=== PATIENT | male | born 1965 | race Caucasian/White ===

== ENCOUNTER → 2020-06-26 12:03 | Outpatient (CLI) | payer OTHER, SELFPAY ==
--- NOTE | ~2020-06-26 | XR_ITS ---
EXAMINATION: XR fl inj knee LT for MR/CT DATE: 06/26/2020 13:17 INDICATION: Medial left knee pain TECHNIQUE: A time-out was performed to verify the patient's name, date of , and procedure to b e performed. The procedure including the risks, benefits, and alternatives was discussed with the pat ient. Risks discussed included bleeding and infection. The patient understood the risks and agreed to proceed. The skin overlying the lateral side of the left knee joint was prepped and draped in usual sterile fashion. Anesthetic was administered with 1% lidocaine subcutaneously. A 21 G needle was a dvanced under fluoroscopic guidance into the joint. Injection of 0.5 mL of Omnipaque 240 confirmed i ntra-articular position of the needle. Subsequently, injectate consisting of 43 mL of 7:3:2 mixture of sterile saline:Omnipaque 240:1% lidocaine mixed 200:1 with 529 mg/mL Multihance gadolinium contras t was injected for a total dose injected dose. 12 mL Omnipaque 240. Intra-articular administration co nfirmed with intermittent fluoroscopy. The needle was removed and the entry site was cleaned and dres sed. There were no immediate complications. Fluoroscopy exposure time was 0.2 minutes. The total num fletcher of images was 10. FINDINGS: Real-time fluoroscopy demonstrates the needle in the left knee joint. IMPRESSION: 1. Successful left knee joint injection of a dilute gadolinium contrast mixture for subsequent MRI ar throgram which will be dictated separately. Reviewed, dictated and finalized at location B. IMPRESSION: 1. Successful left knee joint injection of a dilute gadolinium contrast mixture for subsequent MRI arthrogram which will be dictated separately.
--- NOTE | ~2020-06-26 | MR_ITS ---
EXAMINATION: MR knee LT w con DATE: 06/26/2020 13:51 INDICATION: Left knee pain TECHNIQUE: Magnetic resonance imaging (MRI) of the left knee was performed without intravenous contra st. Sequences included coronal PD-weighted FSE, coronal PD-weighted FS FSE, sagittal T2-weighted FSE , sagittal PD-weighted FS FSE and axial PD weighted fat saturated FSE. COMPARISON: None. FINDINGS: Medial compartment: Complex tear at the posterior horn of the medial meniscus which extends from the free edge to the per iphery and also involves both the superior and inferior articular surfaces. Articular cartilage is no rmal. Lateral compartment: Lateral meniscus is normal. Articular cartilage is normal. Patellofemoral compartment: Articular cartilage is normal. Ligaments and tendons: Anterior and posterior cruciate ligaments are normal. The medial collateral ligament and fibular dany ateral ligament complex are normal. The extensor mechanism is normal. The visualized medial and later al hamstring tendons as well as the iliotibial band are normal. Fluid: Couple tiny injected bubbles in the nondependent contrast opacified joint space. No loose osteochondr al bodies identified. There is both a partial suprapatellar plical band as well as a medial plical ba nd the latter which extends minimally across the superomedial margin of the medial trochlea. No Soliz 's cyst, bursitis or other abnormal fluid collections. Osseous/other: Normal marrow signal. No fracture or abnormal marrow replacing process. IMPRESSION: 1. Complex tear at the posterior horn of the medial meniscus. Normal bones, cartilage, tendons and st abilizing ligaments of the knee. 2. Medial plical band and partial suprapatellar plical band. Reviewed, dictated and finalized at location B. IMPRESSION: 1. Complex tear at the posterior horn of the medial meniscus. Normal bones, car tilage, tendons and stabilizing ligaments of the knee. 2. Medial plical band and partial suprapatellar plical band.
== END ==
PROVIDERS: Visit Provider Orthopaedic Surgery
DX: S83.232A Complex tear of medial meniscus, current injury, left knee, initial encounter (principal)
CPT/HCPCS: 20610; 73722; 77002; A9577; Q9966

== ENCOUNTER 2025-03-17 12:16 | Inpatient (IN) | payer OTHER, SELFPAY ==
[2025-03-17] VITALS (18 sets, daily range): BP systolic 95–208; BP diastolic 52–96; PULSE 54–80; RESP 10–22; TEMP 36.5–36.9; O2SAT 94–98; BMI 27.8
--- NOTE | ~2025-03-17 | XR_ITS ---
Examination: XR chest 2V Clinical History: cp Comparison: None Technique: PA and Lateral Findings: Cardiomediastinal silhouette normal size and configuration. Lungs clear. Calcified granuloma right midlung. No acute bony abnormality. IMPRESSION: 1. No acute cardiopulmonary findings. Reviewed, dictated and finalized at location R. ATION GENERAL MANAGER
--- NOTE | 2025-03-17 12:16 | ECG_ITS ---
Test Date: 2025-03-17 12:21:23 Measurements Intervals [place] Rate: 73 P: -6 [place]: 143 QRS: 76 QRSD: 87 T: 77 QT: 355 QTc: 392 Interpretive Statements SINUS RHYTHM LEFT ATRIAL ENLARGEMENT POSSIBLE RIGHT VENTRICULAR CONDUCTION DELAY VOLTAGE CRITERIA FOR LVH NONSPECIFIC T-WAVE ABNORMALITY- ANT/HIGH LAT LEADS BASELINE ARTIFACT- I, II, III, AVR, AVF BORDERLINE ECG No previous ECG available for comparison Electronically Signed On 03-17-2025 19:37:22 RAILROAD DISPATCHER by Jake Kolb D.O.
--- OUTSIDE RECORDS SUMMARY | 2025-03-17 12:18 | XMS_ITS | Clinical Summary ---
Author Organization [facility] Address [address] [place] [address] Care Team Providers Care Warehouse Engineer Name Role Phone Epifanio Gabriel DO Primary Care Provider [phone] Allergies No known active allergies Medications meclizine (ANTIVERT) 25 mg tabletIndicatio ns:Vertigo Take 1 tablet (25 mg total) by mouth 3 (three) times a day as needed for dizziness 30 tablet Active Active Problems Problem Noted Date Diagnosed Date Abnormal blood chemistry level 03/24/2012 Hyperlipidemia 03/15/2012 Cardiac arrhythmia 01/29/2012 Diastolic dysfunction 01/29/2012 Social History Tobacco Use Types Packs/Day Years Used Date Smoking Tobacco: Never Personal Safety Answer Date Recorded Have you ever been in or are you currently in a harmful physical or emotional relationship or is someone making you feel afraid or unsafe? Denies 04/11/2024 Sex and Gender Information Value Date Recorded Sex Assigned at Not on file Legal Sex Male 6:57 AM PHARMACY DELIVERY DRIVER Gender Identity Not on file Sexual Orientation Not on file Last Filed Vital Signs Vital Sign Reading Time Taken Comments Blood Pressure 147/98 04/11/2024 6:00 PM PHARMACY DELIVERY DRIVER Pulse 67 04/11/2024 6:00 PM PHARMACY DELIVERY DRIVER Temperature 36.4 C (97.6 F) 04/11/2024 11:47 AM PHARMACY DELIVERY DRIVER Respiratory Rate 19 04/11/2024 6:00 PM PHARMACY DELIVERY DRIVER Oxygen Saturation 95% 04/11/2024 6:00 PM PHARMACY DELIVERY DRIVER Inhaled Oxygen Concentration - - Weight 84.8 kg (187 lb) 04/11/2024 11:47 AM PHARMACY DELIVERY DRIVER Height 172.7 cm (5' 8) 04/11/2024 11:55 AM PHARMACY DELIVERY DRIVER Body Mass Index 28.43 04/11/2024 11:47 AM PHARMACY DELIVERY DRIVER Plan of Treatment Health Maintenance Due Date Last Done Comments Colon Cancer Screening-Colonoscopy 1966 Depression Screening 1966 Hepatitis C Screening 1966 Prostate Cancer Screening-PSA 1966 DTaP/Tdap/Td Vaccine (1 - Tdap) 1977 Hepatitis B Screening 1984 Regular Well Visit/Exam 18-64 1984 Zoster Vaccine (1 of 2) 2016 Covid-19 Vaccine (2024- season) 2024 03/24/2022, 02/20/2021, 07/09/2020, Additional history exists Influenza Vaccine (#1) 2024 02/27/2023, 2020 Pneumococcal vaccine <65 Aged Out No longer eligible based on patient's age to complete this topic Insurance [facility] Care Teams Warehouse Engineer Relationship Specialty Start Date End Date Epifanio Gabriel DO PCP - General Internal Medicine 04/11/24
--- OUTSIDE RECORDS SUMMARY | 2025-03-17 12:18 | XMS_ITS | Clinical Summary ---
Author Organization [facility] [employer] Address [address] [address] Care Team Providers Care Factory Superintendent Name Role Phone Unavailable Primary Care Provider Unavailabl e Source Comments [facility],non-owned Affiliates and Associated Physician Practices is amultiple site organization consisting of ambulatory clinics and hospital sitesin [place], [place], [place] and [place]. This disclosure is being madepursuant to the Care Everywhere program and may not contain all information available regarding this patient. Last updated 17.[facility] [employer] Allergies No known active allergies Medications * Be aware that medications may not be up to date on this document. Alwaysverify current medications with the patient. 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 Immunizations Immunization Administration Dates Next Due Covid Pfizer primary monoval ent 12+ yr 0.3mL Purple cap 07/09/2020,06/18/2020 Social History Tobacco Use Types Packs/Day Years Used Date Smoking Tobacco: Never Smokeless Tobacco: Never Alcohol Use Standard Drinks/Week Comments Yes 0 (1 standard drink = 0.6 oz pur e alcohol) occ Sex and Gender Information Value Date Recorded Sex Assigned at Not on file Legal Sex Male 12:40 PM CDT Gender Identity Not on file Sexual Orientation Not on file Last Filed Vital Signs Vital Sign Reading Time Taken Comments Blood Pressure 124/68 09/07/2020 6:17 PM CDT Pulse 70 09/07/2020 6:17 PM CDT Temperature 36.8 C (98.2 F) 09/07/2020 6:17 PM CDT Respiratory Rate 16 09/07/2020 6:17 PM CDT Oxygen Saturation 98% 09/07/2020 6:17 PM CDT Inhaled Oxygen Concentration - - Weight 73.9 kg (163 lb) 09/07/2020 3:48 PM CDT Height 172.7 cm (5' 8) 09/07/2020 3:48 PM CDT Body Mass Index 24.78 09/07/2020 3:48 PM CDT Plan of Treatment Health Maintenance Due Date Last Done Comments COLOGUARD (AGES 45-75) - COL ON CA SCREENING 1966 COLON MONITORING 1966 COLONOSCOPY - COLON CA SCREENING 1966 CT COLONOGRAPHY - COLON CA SCREENING 1966 Colorectal Cancer Screening 1966 FIT - COLON CA SCREENING 1966 FLEX SIG - COLON CA SCREENING 1966 LIPID TESTING 1966 HIV SCREENING 1981 HEPATITIS C SCREENING 11/26/1984 DTAP/TDAP/TD VACCINES (1 - Tdap) 1985 HEPATITIS B VACCINE (1 of 3 - 19+ 3-dose series) 1985 PNEUMOCOCCAL VACCINE 50+ (1 of 1 - PCV) 2016 ZOSTER VACCINE (1 of 2) 2016 DEPRESSION SCREENING 03/23/2024 COVID-19 VACCINE (3 - 2024-2 6 season) 2024 07/09/2020, 06/18/2020 INFLUENZA VACCINE (#1) 2024 HIB VACCINE Aged Out No longer eligi ble based on patient's age to complete this topic HPV VACCINE Aged Out No longer eligi ble based on patient's age to complete this topic MENINGOCOCCAL (Group B) VACCINE SHARED DECISION-MAKING Aged Out No longer eligible based on patient's age to complete this topic MENINGOCOCCAL GROUPS A/C/Y/W VACCINE Aged Out No longer eligible b ased on patient's age to complete this topic Insurance [facility] Advance Directives * Full Code (Latest Code Status on File) Date Activated Date Inactivated Comments 09/04/2020 1:46 PM 09/05/2020 4:05 PM
[2025-03-17 12:35] LABS: Hematocrit 54.9 % (42.0-52.0); Hemoglobin 19.3 g/dL (14.0-18.0); Immature Granulocyte Percent A 0.8 % (0-0.5); Lymphocytes Absolute Auto 1.20 K/mm3 (0.9-3.2); Mean Corpuscular HGB Conc 35.2 g/dl (32-36); Mean Corpuscular Hemoglobin 32.7 pg (26-34); Mean Corpuscular Volume 93.1 fl (80-100); Nucleated Red Blood Cells Absolute Auto 0.000 K/mm3 (0.0-0.012); Nucleated Red Blood Cells Perc 0.0 % (0.0-0.2); Platelet Count Result 376 k/mm3 (150-375); Red Blood Count 5.90 M/mm3 (4.6-6.20); White Blood Count 7.3 K/mm3 (4.5-10.0)
[2025-03-17 12:48] LABS: INR 1.1; Partial Thromboplastin Time 27.7 Seconds (22.3-36.8); Prothrombin Time 13.9 Seconds (11.1-14.7)
[2025-03-17 12:54] LABS: Alanine Aminotransferase 50 U/L (6-50); Albumin Level 4.8 g/dL (3.5-5.1); Alkaline Phosphatase 64 U/L (38-126); Anion Gap 9 mmol/L (4-12); Aspartate Amino Transferase 45 U/L (17-59); Bilirubin,Total 2.0 mg/dL (0.2-1.3); Blood Urea Nitrogen 25 mg/dL (9-20); Calcium 9.6 mg/dL (8.4-10.2); Carbon Dioxide 26 mmol/L (22-30); Chloride 104 mmol/L (98-107); Estimated CRCL calculation 56 ml/min; Estimated Glomerular Filt Rate 59; Glucose 109 mg/dL (65-110); Lipase 85 U/L (23-300); Potassium 3.9 mmol/L (3.4-5.0); Sodium 139 mmol/L (137-145); Total Protein 8.0 g/dL (6.3-8.2)
[2025-03-17 13:06] LABS: Troponin I 0.236 ng/mL (0.000-0.034)
[2025-03-17] MEDS: ASPIRIN 81 MG CHEWABLE TABLET 324 MG PO (13:44)
--- NOTE | 2025-03-17 13:45 | PC.NURSE ---
Nitro pill given per verbal order from Dr Maldonado while at bedside
--- OUTSIDE RECORDS SUMMARY | 2025-03-17 13:45 | XMS_ITS | Clinical Summary ---
Author Organization [facility] [employer] Address [address] [place] [address] Care Team Providers Care Retail Sales Clerk Name Role Phone Unavailable Primary Care Provider Unavailabl e Source Comments [facility],non-owned Affiliates and Associated Physician Practices is amultiple site organization consisting of ambulatory clinics and hospital sitesin [place], [place], [place] and [place]. This disclosure is being madepursuant to the Care Everywhere program and may not contain all information available regarding this patient. Last updated 17.[facility] [employer] Allergies No known active allergies Medications * [...] patient's age to complete this topic Insurance [facility] Advance Directives * Full Code (Latest Code Status on File) Date Activated Date Inactivated Comments 09/04/2020 1:46 PM 09/05/2020 4:05 PM
--- NOTE | 2025-03-17 13:56 | ED.CHESTPAIN ---
HPI - Chest Pain General Chief Complaint: Chest Pain Stated Complaint: left chest pain Time Seen by Provider: 03/17/25 13:38 History of Present Illness HPI narrative: Patient is a 59-year-old male who presents the ER with chest pain. He had worked out this morning doing shoulder exercises after he completed them he started having central chest pain. It is pressure-type discomfort that moves to left shoulder down the left arm. That occurred around 7:30 a.m.. Eight continue to increase in discomfort by 11:00 a.m.. He then decided he should probably come to the ER. He has history of a blood pressure spike early in the year but otherwise is in good health. He is not on any blood pressure medication or statins. He does take testosterone. He cannot describe any aggravating factors for his pain since it started. No alleviating factors. He is without any nausea or vomiting. No diaphoresis. On arrival blood pressure was in the 200 systolic but in wound patient's systolic blood pressures in the 160s. He continues to have 3/10 pain Related Data Home Medications ?Medication ?Instructions ?Recorded ?Confirmed ?Last Taken ?Type cholecalciferol (vitamin D3) 25 25 mcg PO DAILY 08/20/23 04/18/24 Unknown History mcg (1,000 unit) capsule mecobalamin (vitamin B12) 500 mcg mcg PO 08/20/23 04/18/24 Unknown History chewable tablet testosterone cypionate 100 mg/mL 100 mg IM ONCE 08/20/23 04/18/24 Unknown History intramuscular oil Allergies Allergy/AdvReac Type Severity Reaction Status Date / Time No Known Allergies Allergy Verified 03/17/25 12:19 [facility] Past Medical History Medical History Depression Family History Family History Father Hypertension Alcoholism Heart problem Mother Hypertension Depression Heart problem Social History Social History Smoking status: Never smoker Second hand tobacco smoke exposure: Yes Alcohol intake: current Drinks per week: 3 Substance use: never Lack of Transportation: No Lack of Food: Never True Current Housing: I Have Housing Concerned About Future Housing: No Difficulty Paying Gas/Electric Bills: No Difficulty Paying for Meds: No Currently Unemployed: No Education: Master's Degree or Higher Difficulty w/ Childcare or Family Care: No Course Course Emergency Course: 1410: Discussed the case with Dr. Atkinson with Cardiology. Recommends patient receive a beta-jas, atorvastatin, and heparin in addition to the aspirin he has already received. Patient declines the atorvastatin as he has had adverse reaction to statins in the past related to liver issues. Patient does understand that this is a mainstay of treatment for acute coronary syndrome. 1435: Accepted by hospitalist. Vital Signs Vital signs: Vital Signs Temperature 98.2 F 03/17/25 12:17 Pulse Rate 78 03/17/25 12:17 Respiratory Rate 16 03/17/25 12:17 Blood Pressure 208/93 H 03/17/25 12:17 Pulse Oximetry 98 03/17/25 12:17 Temperature 98.2 F 03/17/25 12:17 Pulse Rate 80 03/17/25 12:25 Respiratory Rate 16 03/17/25 12:17 Blood Pressure 208/93 H 03/17/25 12:17 Pulse Oximetry 98 03/17/25 12:17 MDM Differential Diagnosis Differential Diagnosis: Hypertension emergency, aortic dissection, non ST-elevation SC, musculoskeletal chest pain, STEMI Lab Data MDM Lab Attestation statement: I personally reviewed the patient's lab results. 03/17/25 12:29 03/17/25 12:29 Labs: Lab Results 03/17/25 Range/Units 12:29 WBC 7.3 (4.5-10.0) K/mm3 RBC 5.90 (4.6-6.20) M/mm3 Hgb 19.3 H (14.0-18.0) g/dL Hct 54.9 H (42.0-52.0) % MCV 93.1 (80-100) fl MCH 32.7 (26-34) pg MCHC 35.2 (32-36) g/dl RDW 13.2 (11.5-14.5) % Plt Count 376 H (150-375) k/mm3 MPV 9.7 (7.4-10.4) fl Immature Gran % (Auto) 0.8 H (0-0.5) % Neut % (Auto) 76.0 H (45.5-73.1) % Lymph % (Auto) 16.4 L (18.3-44.2) % [place] % (Auto) 4.6 (2.6-8.5) % Eos % (Auto) 1.4 (0-4.4) % Baso % (Auto) 0.8 (0.2-1.2) % Lymph # (Auto) 1.20 (0.9-3.2) K/mm3 [place] # (Auto) 0.3 (0.1-0.6) K/mm3 Eos # (Auto) 0.1 (0-0.3) K/mm3 Baso # (Auto) 0.1 (0.0-0.1) K/mm3 Abs Immat Gran (auto) 0.06 H (0.00-0.031) K/mm3 Absolute Neuts (auto) 5.6 (1.3-6.7) K/mm3 Absolute Nucleated RBC 0.000 (0.0-0.012) K/mm3 Nucleated RBC % 0.0 (0.0-0.2) % PT 13.9 (11.1-14.7) Seconds INR 1.1 APTT 27.7 (22.3-36.8) Seconds Sodium 139 (137-145) mmol/L Potassium 3.9 (3.4-5.0) mmol/L Chloride 104 (98-107) mmol/L Carbon Dioxide 26 (22-30) mmol/L Anion Gap 9 (4-12) mmol/L BUN 25 H (9-20) mg/dL Creatinine 1.25 (0.7-1.3) mg/dL Estim Creat Clear Calc 56 ml/min Estimated GFR 59 (59 - ) Glucose 109 (65-110) mg/dL Calcium 9.6 (8.4-10.2) mg/dL Total Bilirubin 2.0 H (0.2-1.3) mg/dL AST 45 (17-59) U/L ALT 50 (6-50) U/L Alkaline Phosphatase 64 (38-126) U/L Troponin I 0.236 H* (0.000-0.034) ng/mL Total Protein 8.0 (6.3-8.2) g/dL Albumin 4.8 (3.5-5.1) g/dL Cholesterol 205 H (0-200) mg/dL Lipase 85 (23-300) U/L Imaging Data Radiologist's impression: ITS Impressions Chest X-Ray 03/17/25 12:58 IMPRESSION: 1. No acute cardiopulmonary findings. ECG Data EKG #1: Attestation: I personally reviewed and interpreted this ECG as follows: ECG completion date: 03/17/25 ECG completion time: 12:21 normal rate (73), sinus rhythm, non-specific ST changes, normal QRS, NL axis and other (LVH. Biphasic T-wave before. Early repolarization abnormality V3.) Critical Care Time Critical Care Time Critical Care Time: Yes Time Type: Intermittent Initial evaluation, discuss w/ involved parties, attempting to gather old records: 10 minutes Documenting medical record: 5 minutes Review of results (EKG's, labs, imaging): 5 minutes Serial repeat bedside evaluation: 10 minutes Discussing case with multiple memebers of the care team and consultants: 5 minutes Total Critical Care Time: 35 Discharge Plan Discharge Clinical Impression: Non-ST elevation SC (NSTEMI) Patient Disposition: Still a Patient Condition: Stable Patient Language: Spanish Prescriptions: No Action testosterone cypionate 100 mg/mL oil 100 mg IM ONCE Rx Instructions: as a single dose mecobalamin (vitamin B12) 500 mcg tablet,chewable PO cholecalciferol (vitamin D3) 25 mcg (1,000 unit) capsule 25 mcg PO DAILY Follow-up/Referrals: Epifanio Gabriel, [Primary Care Provider, Internal Medicine]
[2025-03-17 14:30] LABS: Cholesterol 205 mg/dL (0-200)
[2025-03-17] MEDS: HEPARIN SOD/D5W 100 UNITS/ML 25,000 UNITS/250 ML BAG 9 UNITS IV CONT (14:30)
[2025-03-17] MEDS: METOPROLOL TARTRATE 12.5 MG TABLET PO ×2 (14:30→20:40)
[2025-03-17 14:47] LABS: HDL Direct 37 mg/dL; Triglycerides 164 mg/dL (<150)
[2025-03-17] MEDS: NITROGLYCERIN SL 0.4 MG TABLET SUBLINGUAL ×5 (14:54→21:10)
--- NOTE | 2025-03-17 15:31 | ECG_ITS ---
Test Date: 2025-03-17 15:45:48 Measurements Intervals [place] Rate: 64 P: 55 MT: 141 QRS: -6 QRSD: 85 T: -2 QT: 374 QTc: 389 Interpretive Statements SINUS RHYTHM WITH OCCASIONAL SUPRAVENTRICULAR PREMATURE COMPLEXES POSSIBLE LEFT ATRIAL ENLARGEMENT CONSIDER RIGHT VENTRICULAR CONDUCTION DELAY BORDERLINE T WAVE ABNORMALITY- INFERIOR LEADS BASELINE ARTIFACT- V4 BORDERLINE ECG Compared to ECG 03/17/2025 12:21:23 NO SIGNIFICANT CHANGE Electronically Signed On 03-17-2025 19:44:17 BIOMETRICS INSTRUCTOR by Jake Kolb D.O.
[2025-03-17 16:14] LABS: Troponin I 0.531 ng/mL (0.000-0.034)
--- NOTE | 2025-03-17 16:32 | WPCEDHO ---
ED Hand Off Checklist All vitals saved:yes IV Site documented:yes All med administrations documented:yes Triage Note Triage Note pt to ED c/o left sided chest 03/17/25 12:17 pain, started after completing a work out this AM at 0730. Pt has pain to left shoulder and left arm Allergies No Known Allergies Allergy (Verified 03/17/25 12:19) Family History (Last Reviewed 03/17/25 @ 14:40 by Krysta Villatoro APRN) Father Hypertension Alcoholism Heart problem Mother Hypertension Depression Heart problem Active Medications including assessments/comments Heparin Sodium/Dextrose (Heparin Sodium/D5w 100 Units/Ml) 25,000 units in 250 mls @ 9 mls/hr IV CONT .Q24H ADELFO; Protocol Last Admin: 03/17/25 14:30 Dose: 900 units/hr, 9 mls/hr Documented By: LEANNA Co-signed By: ERIN Infusion/Titration Document 03/17/25 14:30 [facility] (Rec: 03/17/25 14:31 [facility] [id number]) Co-signed By Olimpia Taylor RN Intake IV Site Peripheral Access Right Forearm Container Volume 250 Waste Amount 0 Dosing Dose Rate 900 Infusion Rate 9 Increase/Decrease Started Elapsed Time Elapsed Time ( 0m minutes) Heparin Infusion Assessment Document 03/17/25 14:30 [facility] (Rec: 03/17/25 14:31 [facility] [id number]) Co-signed By Olimpia Taylor RN Heparin Infusion Assessment Heparin Infusion Initiated Action Nitroglycerin (Nitroglycerin Sl 0.4 Mg Tablet) 0.4 mg SUBLINGUAL Q5MIN PRN PRN Reason: Chest Pain Last Admin: 03/17/25 14:54 Dose: 0.4 mg Documented By: LEANNA Administered/Completed Medications Discontinued Medications Aspirin (Aspirin 81 Mg Chewable Tablet) 324 mg PO ONCE STA Stop: 03/17/25 12:17 Last Admin: 03/17/25 13:44 Dose: 324 mg Documented By: LEANNA Atorvastatin Calcium (Atorvastatin 20 Mg Tablet) 20 mg PO ONCE STA Stop: 03/17/25 14:04 Last Admin: 03/17/25 16:09 Dose: Not Given Documented By: LEANNA Non-Admin Reason: Order Discontinued Heparin Sodium (Porcine) (Heparin Sodium 5,000 Units/Ml Vial) 4,000 units IV PUSH ONCE ONE Stop: 03/17/25 14:04 Last Admin: 03/17/25 14:30 Dose: 4,000 units Documented By: [facility] Co-signed By: ERIN Metoprolol Tartrate (Metoprolol Tartrate 12.5 Mg Tablet) 12.5 mg PO ONCE STA Stop: 03/17/25 14:04 Last Admin: 03/17/25 14:30 Dose: 12.5 mg Documented By: [facility] Notes 03/17/25 13:45 Nurse Note by Nazanin Marr Nitro pill given per verbal order from Dr Maldonado while at bedside Initialized on 03/17/25 13:45 - END OF NOTE Interventions/Assessments Cardiac Monitoring Start: 03/17/25 12:16 Freq: Status: Active Protocol: Document 03/17/25 12:25 KJT (Rec: 03/17/25 12:25 KJT [id number]) Veterinary Bacteriologist Assessment Veterinary Bacteriologist Yes Applied Pulse Rate (60-100) 80 EKG Rythm Sinus Rhythm IV / Saline Lock, Insert Start: 03/17/25 12:16 Freq: STAT Status: Active Protocol: Document 03/17/25 12:25 KJT (Rec: 03/17/25 12:26 KJT [id number]) IV Assessment Peripheral Access Right Forearm IV Catheter Access Initiated IV Insertion Date 03/17/25 IV Insertion Time 12:26 Catheter Gauge 18 PA: Cardiovascular Assessment Start: 03/17/25 12:16 Freq: Status: Active Protocol: Document 03/17/25 13:30 [facility] (Rec: 03/17/25 15:38 [facility] [id number]) Cardiovascular Assessment Cardiovascular Chest Pressure Symptoms Skin Description Normal Color Heart Sounds Normal Jugular Vein None Distention Chest Pain Assessment Chest Pain Intensity 4 Chest Pain Location Left Chest Description and Pressure Symptoms Precipitating None Factors Jugular Vein None Distention PA: Respiratory Assessment Start: 03/17/25 12:16 Freq: Status: Active Protocol: Document 03/17/25 13:30 [facility] (Rec: 03/17/25 15:38 [facility] [id number]) Respiratory Assessment Symptoms None Effort Normal Pattern Regular Depth Normal Chest Expansion Symmetrical Adult Capillary Normal/Less than 2 Seconds Refill Bilateral Throughout Phase Inspiratory & Expiratory Lung Sounds Clear Last Vital Signs Temperature 98.2 F 03/17/25 12:17 Pulse Rate 69 03/17/25 15:36 Respiratory Rate 14 03/17/25 15:36 Pulse Oximetry 96 03/17/25 15:36 Blood Pressure 134/84 03/17/25 15:36 Blood Pressure Mean 100 03/17/25 15:36 Weight 77 kg 03/17/25 12:17 Last Result - Abnormals Only Hgb 19.3 g/dL (14.0-18.0) H 03/17/25 12:29 Hct 54.9 % (42.0-52.0) H 03/17/25 12:29 Plt Count 376 k/mm3 (150-375) H 03/17/25 12:29 Immature Gran % (Auto) 0.8 % (0-0.5) H 03/17/25 12: Neut % (Auto) 76.0 % (45.5-73.1) H 03/17/25 12: Lymph % (Auto) 16.4 % (18.3-44.2) L 03/17/25 12:29 Abs Immat Gran (auto) 0.06 K/mm3 (0.00-0.031) H 03/17/25 12:29 BUN 25 mg/dL (9-20) H 03/17/25 12:29 Total Bilirubin 2.0 mg/dL (0.2-1.3) H 03/17/25 12:29 Troponin I 0.531 ng/mL (0.000-0.034) H* D 03/17/25 15:35 Triglycerides 164 mg/dL (<150) H 03/17/25 12:29 Cholesterol 205 mg/dL (0-200) H 03/17/25 12:29 Most Recent Suicide Severity Rating Suicide Severity Rating NO RISK INDICATED 03/17/25 12:17
--- NOTE | 2025-03-17 16:55 | ADMGEN ---
This patient, Serg Madison, was admitted to Virtual Bed IMU-2. Patient/family oriented to hospital policies and general routines including ID bracelet, bed and alarms, visiting hours, pain management, procedures, bathroom and other care routines, personal items, smoking policy, room service/diet, and visiting hours. Information on how to activate the Rapid Response Team has been discussed. Patient/Family are encouraged to report perceived risks to care and to ask questions if they do not understand what they are told or what they should do.
--- NOTE | 2025-03-17 16:55 | ADMGEN ---
This patient, Serg Madison, was admitted to Virtual Bed IMU-2 at 1655. Patient/family oriented to hospital policies and general routines including ID bracelet, bed and alarms, visiting hours, pain management, procedures, bathroom and other care routines, personal items, smoking policy, room service/diet, and visiting hours. Information on how to activate the Rapid Response Team has been discussed. Patient/Family are encouraged to report perceived risks to care and to ask questions if they do not understand what they are told or what they should do.
--- NOTE | 2025-03-17 17:30 | P.HP_ITS ---
H&P: HPI History of Present Illness Date/Time: 03/17/25 17:30 Chief Complaint: Chest Pain Narrative: 59 y/o M with PMH of transient elevated blood pressure without diagnosis of hypertension x1 and depression presents here with chest pain. The patient presents here from home on 03/17 for further evaluation of acute onset of chest pain. He reports he did a work out this morning around 7:30 a.m. states he did upper body work. Pain started shortly after his workout. He describes the chest pain as central, pressure, radiation into his left upper extremity and left shoulder, initially worsening in severity, constant, with no aggravating or alleviating factors. Initially he hoped the pain was related to his workout/musculoskeletal. He reports he took a nap prior to going to work but the pain persisted despite rest. He did report very mild indigestion and some mild fatigue. He denied accompanying nausea, vomiting, dizziness, shortness of breath, diaphoresis, palpitation, or weakness. He reports minimal past medical history. He does report he had a brief episode of high blood pressure earlier in the year that was accompanied by a dizziness, blurred vision, and headache. He was initially evaluated at [facility] and diagnosed with vertigo. He later followed up with his PCP and upon rechecks of his blood pressure they had normalized. Not on any antihypertensives or anticoagulation. He has previously been prescribed a statin, however he did not tolerate this as he developed significant muscle weakness and rhabdomyolysis. He reports significant family history of cardiac disease, however no early heart disease. Initial VS at presentation: 98.2? F, HR 78, R 16, 208/93, and 98% on RA. ED workup showed: No leukocytosis, hemoglobin 19.3, normal coags, no significant electrolyte derangements, creatinine 1.25 and GFR 59, total bilirubin 2.0 with normal AST/ALT/alk-phos, initial troponin 0.236, cholesterol 205. CXR showed no acute cardiopulmonary findings. Initial EKG showed sinus rhythm, rate 73, left atrial enlargement, possible RBC delay, possible LVH, nonspecific T-wave abnormality. Review of Systems Review of Systems: All systems reviewed & are unremarkable except as noted in HPI and below [facility] Past Medical History Medical History Family history of abdominal aortic aneurysm (AAA) Vitamin D deficiency Vertigo Depression Family History Family History Father Hypertension Alcoholism Heart problem Mother Hypertension Depression Heart problem Social History Social History Smoking status: Never smoker Second hand tobacco smoke exposure: Yes Alcohol intake: current Drinks per week: 3 Substance use: never Substance use type: does not use Lack of Transportation: No Lack of Food: Never True Current Housing: I Have Housing Concerned About Future Housing: No Difficulty Paying Gas/Electric Bills: No Difficulty Paying for Meds: No Currently Unemployed: No Education: Master's Degree or Higher Difficulty w/ Childcare or Family Care: No Spiritual care concerns: No Meds Home Medications and Allergies Home Medications ?Medication ?Instructions ?Recorded ?Confirmed ?Type cholecalciferol (vitamin D3) 25 25 mcg PO DAILY 03/17/25 History mcg (1,000 unit) capsule mecobalamin (vitamin B12) 500 mcg 1,000 mcg PO DAILY 0 08/20/23 03/17/25 History chewable tablet testosterone cypionate 100 mg/mL 100 mg IM ONCE 03/17/25 History intramuscular oil Allergies Allergy/AdvReac Type Severity Reaction Status Date / Time No Known Allergies Allergy Verified 03/17/25 17:05 Vital Signs Vital Signs - 24 hr 03/17/25 12:17 03/17/25 12:25 Temperature 98.2 F Pulse Rate 78 80 Respiratory Rate 16 Blood Pressure 208/93 H Pulse Oximetry 98 Exam Const: General: comfortable and no acute distress Other: , male, nontoxic appearance HENMT: Face/Nose/Sinus: Normal nares present Mouth: Yes moist mucous membranes Eyes: General: appearance normal, both eyes and all related structures Sclera: sclerae normal Pupils: Equal, round and reactive pupils present EOM: EOMs intact bilaterally Resp: Effort & Inspection: normal respiratory effort Auscultation: clear to auscultation bilaterally Cardio: Rate: regular rate Rhythm: regular rhythm Other: S1-S2 present without murmur, rub, ectopy GI: Other: Abdomen soft, nondistended, nontender. Normoactive bowel sounds in all quadrants. Skin: General skin exam: normal color and no rashes or lesions noted Wounds: no wounds Neuro: Other: A&O x4, moving all extremities. Normal speech, no facial droop, no dysarthria. Extrem: General: normal to inspection Psych: Mental Status: mental status grossly normal Affect: normal affect Other: Good insight and judgment, pleasant Results Labs Labs: Short CBC 03/17/25 Range/Units 12:29 WBC 7.3 (4.5-10.0) K/mm3 Hgb 19.3 H (14.0-18.0) g/dL Hct 54.9 H (42.0-52.0) % Plt Count 376 H (150-375) k/mm3 BMP 03/17/25 12:29 Sodium 139 Potassium 3.9 Chloride 104 Carbon Dioxide 26 BUN 25 H Creatinine 1.25 Glucose 109 Calcium 9.6 Cardiac Enzymes 03/17/25 Range/Units 12:29 Troponin I 0.236 H* (0.000-0.034) ng/mL Liver Function 03/17/25 Range/Units 12:29 Total Bilirubin 2.0 H (0.2-1.3) mg/dL AST 45 (17-59) U/L ALT 50 (6-50) U/L Alkaline Phosphatase 64 (38-126) U/L Albumin 4.8 (3.5-5.1) g/dL Critical Care Time Critical Care Time Critical Care Time: Yes Time Type: Continuous Initial evaluation, discuss w/ involved parties, attempting to gather old records: 30 minutes Documenting medical record: 15 minutes Review of results (EKG's, labs, imaging): 15 minutes Serial repeat bedside evaluation: 30 minutes Discussing case with multiple memebers of the care team and consultants: 20 minutes Total Critical Care Time: 110 Quality VTE Prophylaxis VTE prophylaxis: pharmacologic ordered Assessment and Plan Assessment and plan (1) Non-ST elevation MD (NSTEMI): Code(s): I21.4 - Non-ST elevation (NSTEMI) myocardial infarction Status: Acute Assessment and Plan: Patient presented here with acute onset of central, pressure like, radiating chest pain into his left upper extremity/left shoulder. Initially 10/30. Per PCP note from March 2024, he has previously been noted to have T-wave inversions that he has previously been evaluated by a outside sales consultant for. EKG today showed sinus rhythm, rate 73, left atrial enlargement, possible RBC delay, possible LVH, nonspecific T-wave abnormality. His initial troponin was elevated at 0.236. ED provider, Dr. Maldonado, spoke with on-call outside sales consultant, Dr. Atkinson, who recommended beta-jas, atorvastatin, and heparin in addition to the aspirin he has already received. Per ED provider, the patient declined atorvastatin stating he has previously had an adverse reaction when prescribed this medication related to liver issues. At time of evaluation the patient reported 2/10 chest pain. Reports that has been continuous, pressure, and more so noticeable/annoying than severe. He does report some slight relief with sublingual nitro, however he did develop a headache. Has since received 3 sublingual nitro with minimal relief. Chest pain now increasing. - heparin gtt initiated on 03/17 - start metoprolol 12.5 mg b.i.d., monitor toleration - patient declines statin, update lipid panel - NPO at midnight for cardiac catheterization if indicated - nitro SL prn - trend troponin and EKGs 3 hour EKG shows slight change in multiple leads. Patient showed mild new elevation in AVL, v4, v5. However per cardiology impression, there are no significant changes. 6 hour EKG reviewed and per my interpretation patient has worsening ST elevations in V4 and V3. - cardiology consulted After review of 6 hour troponin and 6 hour EKG, Dr. Atkinson was contacted. EKGs were faxed for review. Presentation/changes were related. Given constellation of symptoms, troponin, and EKGs the veterinary laboratory technician was activated. Interventional cardiology was contacted, Dr. Wheeler. Plan for emergent cardiac catheterization this evening. Patient has been notified and is agreeable to plan. Remains largely hemodynamically stable. BP slightly soft at 96/53 post sublingual nitro. Monitoring. (2) Elevated blood pressure reading: Code(s): R03.0 - Elevated blood-pressure reading, without diagnosis of hypertension Status: Acute Assessment and Plan: Patient has previously had elevated pressure earlier this year in March. Re- evaluated by his PCP office and BP normalized. Not currently on a daily antihypertensive. Arrived to the emergency department with a blood pressure of 208/93. Started on metoprolol 12.5 mg b.i.d. due to NSTEMI per cardiology recommendations. Monitor toleration. - metoprolol 12.5 mg b.i.d. started on 03/17 - hydralazine 10 mg p.r.n. for BP greater than 180/90 - monitor Plan Diet: heart healthy, NPO at midnight GI Prophylaxis: n/a DVT Prophylaxis: heparin gtt IV fluids: none Lines/Tubes: pIV Code Status: full code Prior Studies I have reviewed the following patient records and this information was taken into consideration when formulating the assessment and plan.: previous labs, previous ER visits, previous hospitalizations and previous clinic visits Time Spent with Patient Time with patient: less than 45 minutes Hospitalist MIPS Advance Care Plan I have confirmed that the patient's Advanced Care Plan is present, code status is documented, or surrogate decision maker is listed in patient medical record.: Yes Medication Reconciliation I have utilized all available resources to obtain, update and review the león ents current medications (includes all prescriptions, OTC, herbals, cannabis, and nutritional supplements).: Yes
[2025-03-17] MEDS: ACETAMINOPHEN 325 MG TABLET 650 MG PO (18:18)
[2025-03-17 18:38] LABS: Hematocrit 53.7 % (42.0-52.0); Hemoglobin 18.8 g/dL (14.0-18.0); Immature Granulocyte Percent A 0.4 % (0-0.5); Lymphocytes Absolute Auto 1.09 K/mm3 (0.9-3.2); Mean Corpuscular HGB Conc 35.0 g/dl (32-36); Mean Corpuscular Hemoglobin 33.2 pg (26-34); Mean Corpuscular Volume 94.7 fl (80-100); Nucleated Red Blood Cells Absolute Auto 0.000 K/mm3 (0.0-0.012); Nucleated Red Blood Cells Perc 0.0 % (0.0-0.2); Platelet Count Result 371 k/mm3 (150-375); Red Blood Count 5.67 M/mm3 (4.6-6.20); White Blood Count 7.1 K/mm3 (4.5-10.0)
[2025-03-17 18:50] LABS: INR 1.1; Prothrombin Time 13.8 Seconds (11.1-14.7)
[2025-03-17 18:51] LABS: Partial Thromboplastin Time 41.1 Seconds (22.3-36.8)
[2025-03-17 19:07] LABS: Troponin I 0.928 ng/mL (0.000-0.034)
--- NOTE | 2025-03-17 19:38 | ECG_ITS ---
Test Date: 2025-03-17 20:12:15 Measurements Intervals [place] Rate: 68 P: 61 ME: 144 QRS: -17 QRSD: 95 T: -25 QT: 383 QTc: 410 Interpretive Statements SINUS RHYTHM POSSIBLE LEFT ATRIAL ENLARGEMENT INCOMPLETE RIGHT BUNDLE BRANCH BLOCK VOLTAGE CRITERIA FOR LVH BORDERLINE T WAVE ABNORMALITY- ANTEROLAT/INF LEADS BASELINE ARTIFACT- V1, V4-V6 BORDERLINE ECG Compared to ECG 03/17/2025 15:45:48 NO SIGNIFICANT CHANGE Electronically Signed On 03-17-2025 20:33:14 CARDIOPULMONARY PHYSICAL THERAPIST by Jake Kolb D.O.
[2025-03-17] MEDS: MORPHINE SULFATE (*CRX) 4 MG/ML INJ IV PUSH (20:51)
--- NOTE | 2025-03-17 22:19 | PC.NURSE ---
Addendum entered by Faina Zapata RN 03/17/25 22:22: Pt transfer time was on 03/17/25 at 2153. Original Note: This patient, Serg Madison, was transferred to ICU-01 on 03/17/25 at 2157. Personal belongings sent with patient. Report given to LENKA Walker. Appropriate documentation sent with patient.
--- NOTE | 2025-03-17 22:20 | PC.NURSE ---
This patient, Serg Madison, was received from IMU on 03/17/25 at 2200. Report received from LENKA Hay. Patient/family oriented to unit policies and routines
--- NOTE | 2025-03-17 22:21 | PC.NURSE ---
This patient, Serg Madison, was transferred to ICU-01 on 03/17/25 at 2153. Personal belongings sent with patient. Report given to LENKA Walker. Appropriate documentation sent with patient.
--- NOTE | 2025-03-17 22:42 | PM.CNCAR ---
Assessment and Plan Assessment and plan (1) Essential hypertension: Code(s): I10 - Essential (primary) hypertension Status: Acute (2) Non-ST elevation AK (NSTEMI): Code(s): I21.4 - Non-ST elevation (NSTEMI) myocardial infarction Status: Acute Plan 1. NSTEMI 2. HTN 3. Depression - Received ASA 324, Atorvastatin 20 - ON metoprolol - On Heparin infusion - Urgent LHC as per Dr Atkinson - The riks, benefits and alternatives of LHC and PCI discussed with the patient. He understood the risks in layman terms and signed informed consent. The riks included but are not limited to bleeding, arrhythmia, vascular injury, anaphylaxis, perforation, coronary artery dissection, pericardial effusion, tamponade, arrhythmia, renal dysfunction, needing temporary or permanent hemodialysis and even History of Present Illness History of Present Illness Consult date/time: 03/17/25 22:42 Reason For Visit: NSTEMI Narrative: 59 y/o M with PMH of transient elevated blood pressure without diagnosis of hypertension x1 and depression was admitted with chest pain. presents here with chest pain. He reports he did a work out this morning around 7:30 a.m. states he did upper body work. Pain started shortly after his workout. He describes the chest pain as central, pressure, radiation into his left upper extremity and left shoulder, initially worsening in severity, constant, with no aggravating or alleviating factors. His pain has been waxing and waning with some subtle EKG changes. The team discussed the case with Dr Atkinson who activated the energy systems laboratory director Trop 0.2, 0.5, 0.9 No prior history of CAD, AK or CVA Non smoker Alcohol, yes Father had CAD at the age of 50 Review of Systems Review of Systems: All systems reviewed & are unremarkable except as noted in HPI and below PMF[facility] Past Medical History Medical History Family history of abdominal aortic aneurysm (AAA) Vitamin D deficiency Vertigo Depression Family History Family History Father Hypertension Alcoholism Heart problem Mother Hypertension Depression Heart problem Social History Social History Smoking status: Never smoker Second hand tobacco smoke exposure: Yes Alcohol intake: current Drinks per week: 3 Substance use: never Substance use type: does not use Lack of Transportation: No Lack of Food: Never True Current Housing: I Have Housing Concerned About Future Housing: No Difficulty Paying Gas/Electric Bills: No Difficulty Paying for Meds: No Currently Unemployed: No Education: Master's Degree or Higher Difficulty w/ Childcare or Family Care: No Spiritual care concerns: No Meds Home Medications and Allergies Home Medications ?Medication ?Instructions ?Recorded ?Confirmed ?Type cholecalciferol (vitamin D3) 25 25 mcg PO DAILY 08/20/23 03/17/25 History mcg (1,000 unit) capsule mecobalamin (vitamin B12) 500 mcg 1,000 mcg PO DAILY 08/20/23 03/17/25 History chewable tablet testosterone cypionate 100 mg/mL 100 mg IM ONCE 08/20/23 03/17/25 History intramuscular oil Allergies Allergy/AdvReac Type Severity Reaction Status Date / Time No Known Allergies Allergy Verified 03/17/25 17:05 Vital Signs Vital Signs - 24 hr 03/17/25 12:17 03/17/25 12:25 03/17/25 14:30 Temperature 36.8 C Pulse Rate 78 80 65 Respiratory Rate 16 Blood Pressure 208/93 H Pulse Oximetry 98 03/17/25 15:36 03/17/25 16:55 03/17/25 18:00 Temperature 36.8 C Pulse Rate 69 57 L 62 Respiratory Rate 14 16 Blood Pressure 134/84 135/96 H Pulse Oximetry 96 96 03/17/25 19:51 03/17/25 20:40 03/17/25 20:56 Temperature 36.5 C Pulse Rate 70 58 L 57 L Respiratory Rate 14 22 H Blood Pressure 139/91 H 95/52 L Pulse Oximetry 94 96 03/17/25 20:59 Temperature Pulse Rate 54 L Respiratory Rate 20 Blood Pressure 96/53 L Pulse Oximetry 95 Exam Const: General: comfortable and no acute distress Other: , male, nontoxic appearance HENMT: Face/Nose/Sinus: Normal nares present Mouth: Yes moist mucous membranes Eyes: General: appearance normal, both eyes and all related structures Sclera: sclerae normal Pupils: Equal, round and reactive pupils present EOM: EOMs intact bilaterally Resp: Effort & Inspection: normal respiratory effort Auscultation: clear to auscultation bilaterally Cardio: Rate: regular rate Rhythm: regular rhythm Other: S1-S2 present without murmur, rub, ectopy GI: Other: Abdomen soft, nondistended, nontender. Normoactive bowel sounds in all quadrants. Skin: General skin exam: normal color and no rashes or lesions noted Wounds: no wounds Neuro: Cranial nerves: Yes Equal, round and reactive pupils present Other: A&O x4, moving all extremities. Normal speech, no facial droop, no dysarthria. Extrem: General: normal to inspection Psych: Mental Status: mental status grossly normal Affect: normal affect Other: Good insight and judgment, pleasant Results Labs and Meds 03/17/25 18:24 03/17/25 12: Lab results: Cardiac Enzymes 03/17/25 03/17/25 03/17/25 Range/Units 12: 15:35 18:24 AST 45 (17-59) U/L Troponin I 0.236 H* 0.531 H* D 0.928 H* D (0.000-0.034) ng/mL Coagulation 03/17/25 03/17/25 Range/Units 12: 18:24 PT 13.9 13.8 (11.1-14.7) Seconds APTT 27.7 41.1 H (22.3-36.8) Seconds Lipids 03/17/25 Range/Units 12: Triglycerides 164 H (<150) mg/dL Cholesterol 205 H (0-200) mg/dL CBC 03/17/25 03/17/25 Range/Units 12:29 18:24 WBC 7.3 7.1 (4.5-10.0) K/mm3 RBC 5.90 5.67 (4.6-6.20) M/mm3 Hgb 19.3 H 18.8 H (14.0-18.0) g/dL Hct 54.9 H 53.7 H (42.0-52.0) % Plt Count 376 H 371 (150-375) k/mm3 Lymph # (Auto) 1.20 1.09 (0.9-3.2) K/mm3 [place] # (Auto) 0.3 0.3 (0.1-0.6) K/mm3 Eos # (Auto) 0.1 0.2 (0-0.3) K/mm3 Baso # (Auto) 0.1 0.1 (0.0-0.1) K/mm3 Comprehensive Metabolic Panel 03/17/25 Range/Units 12:29 Sodium 139 (137-145) mmol/L Potassium 3.9 (3.4-5.0) mmol/L Chloride 104 (98-107) mmol/L Carbon Dioxide 26 (22-30) mmol/L BUN 25 H (9-20) mg/dL Creatinine 1.25 (0.7-1.3) mg/dL Glucose 109 (65-110) mg/dL Calcium 9.6 (8.4-10.2) mg/dL AST 45 (17-59) U/L ALT 50 (6-50) U/L Alkaline Phosphatase 64 (38-126) U/L Total Protein 8.0 (6.3-8.2) g/dL Albumin 4.8 (3.5-5.1) g/dL Intake and Output 03/17/25 03/17/25 03/17/25 07:59 15:59 23:59 Intake Total 886.2 Balance 886.2 Intake: IV 46.2 Heparin Sod/D5w 100 Units/ml 25 46.2 ,000 units In 250 ml @ 900 UNITS/HR 9 mls/hr IV CONT .Q24H [facility] Rx#:[id number] Oral 840 Other: # Unmeasured Voids 1 Patient Weight 03/17/25 23:59 Weight 83.1 kg
--- NOTE | 2025-03-17 23:26 | P.PCNCC_ITS ---
Cardiac Cath Procedure Note Date of procedure:: 03/17/25 Performing physician:: Xu Wheeler MD Indication:: NSTEMI Brief clinical history:: As noted in cardiology consult note Procedure Procedure performed:: 1. Coronary Angiography 2. Left Heart Catheterization Sedation/Medication given:: Versed 1 mg Fentanyl 25 mcg Access site:: Right Radila Estimated blood loss:: 2 cc Procedure note:: The patient was brought to the laboratory manager and informed consent was signed after discussion of the risks and benefits. The right radial artery was accessed using seldinger technique and a 5-6 Fr sheath was inserted. A 5Fr Tig catheter was used to the engage the right and left coronary ostia. Multiple aniographic images were taken in different cineangiographic projections. The aortic valve was crossed and LVEDP was measure. The catheter was pulled back for a LV-Ao gradient. The radial sheath was removed at the end of the procedure and hemostasis was achieved with TR band Moderate sedation was given under my direct supervision and the patient was monitored by an independent trained personnel Sedation Start Time: 2307 H Sedation Edn time: 2321 H Findings:: 1. Coronary Angiography: LM: Large caliber vessel which divides into LAD, Ramus and LCX branches. No angiographic evidence of atherosclerotic ds. LAD: Large caliber, transapical vessel which gives rise to a mod-large caliber diagonal branch. No angiographic evidence of atherosclerotic ds. LCX; LArge caliber, non dominant vessel, gives rise to mod caliber OM1. No angiographic evidence of atherosclerotic ds. Ramus: LArge caliber vessel. No angiographic evidence of atherosclerotic ds. RCA: LArge caliber vessel whihc divides into PDA and PLV brnaches. No angiographic evidence of atherosclerotic ds. 2. Left Heart Catheterization LVEDP 6 mmhg No significant LV-Ao gradient on pullback Conclusion:: 1. Normal Coronaries 2. Normal LVEDP
--- NOTE | 2025-03-17 23:53 | ECG_ITS ---
Test Date: 2025-03-18 00:00:33 Measurements Intervals [place] Rate: 54 P: 63 [place]: 135 QRS: -4 QRSD: 102 T: -29 QT: 423 QTc: 402 Interpretive Statements SINUS BRADYCARDIA EARLY PRECORDIAL R/S TRANSITION VOLTAGE CRITERIA FOR LVH BORDERLINE ST-T WAVE ABNORMALITY- ANTEROLAT/INF LEADS BASELINE ARTIFACT- I, III, AVL BORDERLINE ECG Compared to ECG 03/17/2025 20:12:15 HEART RATE HAS DECREASED Electronically Signed On 03-18-2025 09:00:32 TITLE ATTORNEY by Jake Kolb D.O.
[2025-03-18] VITALS (23 sets, daily range): BP systolic 108–174; BP diastolic 71–96; PULSE 52–134; RESP 11–23; TEMP 36.6; O2SAT 92–100
--- NOTE | 2025-03-18 | ECHO_ITS ---
Patient Info Name: Serg Madison Age: 59 years : 1965 Gender: Male Ht: 68 in Wt: 183 lbs BSA: 2.01 m2 HR: 59 bpm BP: 156 / 91 mmHg Heart Rhythm: Sinus Rhythm Technical Quality: Good Exam Date: 03/18/2025 10:34 AM Patient Status: I Admit Date: 03/17/2025 Exam Type: CA echo dop color flow w con Complete two-dimensional, color flow and Doppler transthoracic echocardiogram is performed with contrast to opacify the left ventricle and to improve the deliniation of the left ventricle endocardial borders. Staff Referring Physician: Zohaib Maldonado MD Candy Attendant: Leatha Fulton Attending Provider: Jesus Spicer Contrast/Agitated Saline Contrast/Ag. Saline: Definity Amount: 2.00 ml Administered By: Leatha Fulton Existing IV Access: Yes IV Access Condition: patent with no signs of infiltration Summary 1. Normal left ventricular size with overall normal systolic and diastolic function. 2. Very small discrete area of distal anterior hypokinesia. 3. No valvular abnormalities. 4. Sinus rhythm. Left Ventricle Left ventricular systolic function is normal, estimated at 60-65. The left ventricular diastolic function is normal. Right Ventricle Right ventricular chamber dimension is normal. Left Atria Left atrial chamber dimension is normal. Right Atria Right atrial chamber dimension is normal. Aortic Valve The aortic valve is normal. Pulmonic Valve The pulmonic valve is normal. Mitral Valve The mitral valve has normal leaflets. Tricuspid Valve The tricuspid valve leaflets are normal. Pericardium/Pleural The pericardium appears normal. Aorta The aortic root size at the sinus of Valsalva is normal. Left Ventricular Outflow Tract Name Value Normal LVOT 2D LVOT Diameter 2.0 cm LVOT Doppler LVOT Peak Velocity 106 cm/s LVOT Peak Gradient 5 mmHg LVOT Mean Gradient 2 mmHg LVOT VTI 19 cm LVOT VTI/AV VTI Ratio 0.8 LVOT Stroke Volume 57 ml LVOT CO 3.8 l/min LVOT CI 1.9 l/min/m2 Pulmonic Valve Name Value Normal RVOT Doppler RVOT Peak Velocity 64 cm/s RVOT Peak Gradient 2 mmHg PV Doppler PV Peak Velocity 99 cm/s PV Peak Gradient 4 mmHg Mitral Valve Name Value Normal MV Diastolic Function MV E Peak Velocity 43 cm/s MV A Peak Velocity 45 cm/s MV E/A 0.9 MV Decel Time (PW) 273 ms MV Annular TDI MV E/e' (Septal) 5.9 MV E/e' (Lateral) 4.4 MV E/e' (Average) 5.1 Tricuspid Valve Name Value Normal TV Regurgitation Doppler TR Peak Velocity 225 cm/s TR Peak Gradient 20 mmHg Estimated PAP/RSVP RA Pressure 10 mmHg <=5 PA Systolic Pressure 30 mmHg <36 RV Systolic Pressure 30 mmHg <36 TV Annular TDI TV Lateral Janet s' Velocity 12.6 cm/s >=9.5 Aortic Valve Name Value Normal AV Doppler AV Peak Velocity 129 cm/s AV Peak Gradient 7 mmHg AV Mean Gradient 3 mmHg AV VTI 24 cm AV Area (Cont Eq VTI) 2.4 cm2 >=3.0 AV Area (Cont Eq Alvaro) 2.5 cm2 AV DI (Alvaro) 0.82 AV Regurgitation 2D LVOT Area 3.0 cm2 Ventricles Name Value Normal LV Dimensions 2D/MM IVS Diastolic Thickness (2D) 1.0 cm 0.6-1.0 LVID Diastole (2D) 5.6 cm 4.2-5.8 LVIW Diastolic Thickness (2D) 1.0 cm 0.6-1.0 LVID Systole (2D) 3.1 cm 2.5-4.0 LVOT Diameter 2.0 cm LV Mass (2D Cubed) 206.08 g 88.00-224.00 LV Mass Index (2D Cubed) 102 g/m2 49-115 Relative Wall Thickness (2D) 0.34 <=0.42 LV Fractional Shortening/Ejection Fraction 2D/MM LV Fractional Shortening (2D) 45 % 25-43 LV EF (2D Teichholz) 76 % LV Diastolic Volume (4C MOD) 149 ml LV EF (4C MOD) 68 % LV Diastolic Volume (2C MOD) 136 ml LV EF (2C MOD) 71 % LV Diastolic Volume (BP MOD) 144 ml 62-150 LV Diastolic Volume Index (BP MOD) 72 ml/m2 34-74 LV Systolic Volume (BP MOD) 43 ml 21-61 LV Systolic Volume Index (BP MOD) 22 ml/m2 11-31 LV EF (BP MOD) 70 % 52-72 LV Diastolic Length (4C) 8.8 cm LV Systolic Length (4C) 7.7 cm LV Stroke Volume (4C MOD) 102 ml Atria Name Value Normal LA Dimensions LA Volume (4C A-L) 91 ml LA Volume (BP A-L) 98 ml RA Dimensions RA Area (4C) 25.9 cm2 <=18.0 Report Signatures
[2025-03-18] MEDS: SODIUM CHLORIDE 0.9% IV 1,000 ML 125 ML IV CONT (00:05)
[2025-03-18] MEDS: CLOPIDOGREL BISULFATE 300 MG TABLET 600 MG PO (00:17)
[2025-03-18 02:06] LABS: Partial Thromboplastin Time 83.7 Seconds (22.3-36.8)
[2025-03-18 04:48] LABS: Hematocrit 51.2 % (42.0-52.0); Hemoglobin 17.5 g/dL (14.0-18.0); Immature Granulocyte Percent A 0.5 % (0-0.5); Lymphocytes Absolute Auto 1.03 K/mm3 (0.9-3.2); Mean Corpuscular HGB Conc 34.2 g/dl (32-36); Mean Corpuscular Hemoglobin 32.3 pg (26-34); Mean Corpuscular Volume 94.5 fl (80-100); Nucleated Red Blood Cells Absolute Auto 0.000 K/mm3 (0.0-0.012); Nucleated Red Blood Cells Perc 0.0 % (0.0-0.2); Platelet Count Result 320 k/mm3 (150-375); Red Blood Count 5.42 M/mm3 (4.6-6.20); White Blood Count 7.3 K/mm3 (4.5-10.0)
[2025-03-18 05:20] LABS: Anion Gap 4 mmol/L (4-12); Blood Urea Nitrogen 22 mg/dL (9-20); Calcium 8.4 mg/dL (8.4-10.2); Carbon Dioxide 23 mmol/L (22-30); Chloride 108 mmol/L (98-107); Estimated CRCL calculation 68 ml/min; Estimated Glomerular Filt Rate > 60; Glucose 104 mg/dL (65-110); Potassium 3.8 mmol/L (3.4-5.0); Sodium 135 mmol/L (137-145)
--- NOTE | 2025-03-18 09:13 | PM.PNCARD ---
Progress Note: A&P Assessment and Plan (1) Non-ST elevation ND (NSTEMI): Code(s): I21.4 - Non-ST elevation (NSTEMI) myocardial infarction Status: Acute Plan A 59-year-old man with episode of chest pain as described above the yesterday following upper body exertional exercise. 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 Left ventriculogram was not performed. Due to the subtle precordial ST segment changes the unlikely possibility of takotsubo cardiomyopathy should be evaluated. I will order an echocardiogram for this morning for that reason. Following the review of that we will determine if he requires any beta jas/ARB combination for that. Anticipate discharging him later this afternoon/this evening when I have had the opportunity to review his echocardiographic results with him. Brain Atkinson MD [facility] Subjective Date/time seen: Date of service: 03/18/25 09:13 Interval history: Follow-up visit in this 59-year-old man with: Episode of vague central chest discomfort yesterday following exertion which did result in some radiation into the left arm home which brought him to the emergency room. Concern last night regarding acute coronary syndrome because of small troponin rise and subtle ECG abnormalities lead to emergent left heart catheterization which demonstrated non diseased coronary arteries. Left ventriculogram was not performed. He is feeling much better today he a still has very subtle central chest discomfort but otherwise is comfortable. Exam Const: General: comfortable and no acute distress Other: Very pleasant gentleman appearing his stated age comfortable and cooperative HENMT: Mouth: Yes moist mucous membranes Eyes: Sclera: sclerae normal Neck: Neck: no JVD Resp: Effort & Inspection: normal respiratory effort Auscultation: clear to auscultation bilaterally Cardio: Rate: regular rate Rhythm: regular rhythm Other: No murmur no gallop no rub GI: GI Palp: Yes Soft to palpation Auscultation: normal bowel sounds Skin: General skin exam: normal color Neuro: Other: Alert and oriented x3 Extrem: General: normal to inspection Objective Data Vital Signs Vital Signs: Vital Signs - 24 hr 03/17/25 12:17 03/17/25 12:25 03/17/25 14:30 Temperature 36.8 C Pulse Rate 78 80 65 Respiratory Rate 16 Blood Pressure 208/93 H Pulse Oximetry 98 Oxygen Delivery 03/17/25 15:36 03/17/25 16:55 03/17/25 18:00 Temperature 36.8 C Pulse Rate 69 57 L 62 Respiratory Rate 14 16 Blood Pressure 134/84 135/96 H Pulse Oximetry 96 96 Oxygen Delivery 03/17/25 19:51 03/17/25 20:00 03/17/25 20:35 Temperature 36.5 C Pulse Rate 70 64 70 Respiratory Rate 14 14 Blood Pressure 139/91 H Pulse Oximetry 94 94 Oxygen Delivery Room Air 03/17/25 20:40 03/17/25 20:56 03/17/25 20:59 Temperature Pulse Rate 58 L 57 L 54 L Respiratory Rate 22 H 20 Blood Pressure 95/52 L 96/53 L Pulse Oximetry 96 95 Oxygen Delivery 03/17/25 22:00 03/17/25 22:00 03/17/25 22:03 Temperature 36.9 C Pulse Rate 61 60 59 L Respiratory Rate 16 10 L Blood Pressure 118/89 Pulse Oximetry 96 Oxygen Delivery 03/17/25 22:16 03/17/25 22:31 03/17/25 23:40 Temperature Pulse Rate 59 L 56 L 59 L Respiratory Rate 20 14 14 Blood Pressure 121/82 124/83 119/81 Pulse Oximetry 96 95 96 Oxygen Delivery 03/17/25 23:47 03/18/25 00:00 03/18/25 00:00 Temperature Pulse Rate 58 L 54 L Respiratory Rate 12 Blood Pressure 119/80 Pulse Oximetry 96 Oxygen Delivery Room Air 03/18/25 00:10 03/18/25 00:25 03/18/25 00:55 Temperature Pulse Rate 55 L 54 L 53 L Respiratory Rate 23 H 12 13 Blood Pressure 130/82 125/75 137/80 Pulse Oximetry 92 95 93 Oxygen Delivery 03/18/25 01:13 03/18/25 01:25 03/18/25 02:00 Temperature Pulse Rate 53 L 52 L 52 L Respiratory Rate 13 13 Blood Pressure 140/71 115/75 Pulse Oximetry 94 93 Oxygen Delivery 03/18/25 02:25 03/18/25 02:58 03/18/25 04:00 Temperature Pulse Rate 53 L 69 52 L Respiratory Rate 11 L 12 Blood Pressure 137/96 H 141/76 H Pulse Oximetry 96 97 Oxygen Delivery 03/18/25 04:00 03/18/25 05:25 03/18/25 06:00 Temperature Pulse Rate 68 55 L Respiratory Rate 19 Blood Pressure 128/78 Pulse Oximetry 93 Oxygen Delivery Room Air 03/18/25 06:00 03/18/25 07:00 03/18/25 08:00 Temperature Pulse Rate 56 L 54 L 59 L Respiratory Rate 14 17 13 Blood Pressure 108/96 H 125/79 156/91 H Pulse Oximetry 96 93 95 Oxygen Delivery Intake/Output Intake/Output: Intake & Output 03/15/25 03/16/25 03/17/25 03/18/25 23:59 23:59 23:59 23:59 Intake Total 922.6 0 Output Total 500 Balance 922.6 -500 Meds/Results Medications: Active Medications Generic Name Dose Route Start Last Admin Trade Name Freq PRN Reason Stop Dose Admin Acetaminophen 650 mg 03/17/25 14:34 03/17/25 18:18 Acetaminophen 325 Mg Tablet PO 650 mg Q4H PRN Administration Mild Pain (1-3) or Fever Hydrocodone Bitart/Acetaminophen 1 tab 03/17/25 14:34 Hydrocodone/Acetaminophen (*Crx) 5-325 Mg Tablet PO Q4H PRN Pain Rated 4-6 Aspirin 81 mg 03/18/25 09:00 Aspirin 81 Mg Enteric Tablet PO QAM A[place] Calcium Carbonate 200 mg 03/17/25 14:50 Calcium Carbonate (Tums) 500 Mg (200 Mg Elemental) PO Q6H PRN Indigestion Clopidogrel Bisulfate 75 mg 03/18/25 09:00 Clopidogrel Bisulfate 75 Mg Tablet PO QAM [facility] Heparin Sodium (Porcine) 4,000 units 03/17/25 14:03 03/17/25 19:39 Heparin Sodium 5,000 Units/Ml Vial IV PUSH 4,000 units PRN PRN Administration aPTT less than 55 seconds Heparin Sodium (Porcine) 3,000 units 03/17/25 14:03 Heparin Sodium 5,000 Units/Ml Vial IV PUSH PRN PRN aPTT 55 - 70 seconds Hydralazine HCl 10 mg 03/17/25 14:48 Hydralazine Hcl 20 Mg/Ml Vial IV PUSH Q8H PRN Blood Pressure - High, >180/90 Heparin Sodium/Dextrose 25,000 units in 250 mls @ 12 mls/hr 03/17/25 14:05 03/18/25 07:10 Heparin Sodium/D5w 100 Units/Ml IV CONT 1,200 units/hr .[id number] A[place] 12 mls/hr Protocol Titration 1,200 UNITS/HR Metoprolol Tartrate 12.5 mg 03/17/25 21:00 03/17/25 20:40 Metoprolol Tartrate 12.5 Mg Tablet PO 12.5 mg Q12HR [place] Administration Morphine Sulfate 4 mg 03/17/25 14:34 03/17/25 20:51 Morphine Sulfate (*Crx) 4 Mg/Ml Inj IV PUSH 4 mg Q2H PRN Administration Pain Rated 7-10 Nitroglycerin 0.4 mg 03/17/25 14:33 03/17/25 21:10 Nitroglycerin Sl 0.4 Mg Tablet SUBLINGUAL 0.4 mg Q5MIN PRN Administration Chest Pain Ondansetron HCl 4 mg 03/17/25 14:34 Ondansetron Inj 4 Mg/2 Ml Vial IV PUSH Q4H PRN Nausea Perflutren Lipid Microsphere 0 ml 03/18/25 08:17 Perflutren Lipid Microspheres 1.5 Ml Vial Diluted To 10 Ml Total Volume IV PUSH 03/21/25 08:17 ONCE PRN adequate visualization Protocol Radiology Results: ITS Impressions Chest X-Ray 03/17/25 12:58 IMPRESSION: 1. No acute cardiopulmonary findings. Labs Labs: Laboratory Results - last 24 hr 03/17/25 03/17/25 03/17/25 12:29 15:35 18:24 WBC 7.3 7.1 RBC 5.90 5.67 Hgb 19.3 H 18.8 H Hct 54.9 H 53.7 H MCV 93.1 94.7 MCH 32.7 33.2 MCHC 35.2 35.0 RDW 13.2 13.3 Plt Count 376 H 371 MPV 9.7 9.6 Immature Gran % (Auto) 0.8 H 0.4 Neut % (Auto) 76.0 H 76.0 H Lymph % (Auto) 16.4 L 15.4 L [place] % (Auto) 4.6 4.7 Eos % (Auto) 1.4 2.5 Baso % (Auto) 0.8 1.0 Lymph # (Auto) 1.20 1.09 [place] # (Auto) 0.3 0.3 Eos # (Auto) 0.1 0.2 Baso # (Auto) 0.1 0.1 Abs Immat Gran (auto) 0.06 H 0.03 Absolute Neuts (auto) 5.6 5.4 Absolute Nucleated RBC 0.000 0.000 Nucleated RBC % 0.0 0.0 PT 13.9 13.8 INR 1.1 1.1 APTT 27.7 41.1 H Sodium 139 Potassium 3.9 Chloride 104 Carbon Dioxide 26 Anion Gap 9 BUN 25 H Creatinine 1.25 Estim Creat Clear Calc 56 Estimated GFR 59 Glucose 109 Calcium 9.6 Total Bilirubin 2.0 H AST 45 ALT 50 Alkaline Phosphatase 64 Troponin I 0.236 H* 0.531 H* D 0.928 H* D Total Protein 8.0 Albumin 4.8 Triglycerides 164 H Cholesterol 205 H LDL Cholesterol Direct 131 HDL Direct 37 Lipase 85 03/18/25 03/18/25 01:49 04:41 WBC 7.3 RBC 5.42 Hgb 17.5 Hct 51.2 MCV 94.5 MCH 32.3 MCHC 34.2 RDW 13.3 Plt Count 320 MPV 9.5 Immature Gran % (Auto) 0.5 Neut % (Auto) 77.1 H Lymph % (Auto) 14.1 L [place] % (Auto) 6.0 Eos % (Auto) 1.6 Baso % (Auto) 0.7 Lymph # (Auto) 1.03 [place] # (Auto) 0.4 Eos # (Auto) 0.1 Baso # (Auto) 0.1 Abs Immat Gran (auto) 0.04 H Absolute Neuts (auto) 5.6 Absolute Nucleated RBC 0.000 Nucleated RBC % 0.0 PT INR APTT 83.7 H Sodium 135 L Potassium 3.8 Chloride 108 H Carbon Dioxide 23 Anion Gap 4 BUN 22 H Creatinine 1.01 Estim Creat Clear Calc 68 Estimated GFR > 60 Glucose 104 Calcium 8.4 Total Bilirubin AST ALT Alkaline Phosphatase Troponin I Total Protein Albumin Triglycerides Cholesterol LDL Cholesterol Direct HDL Direct Lipase
--- NOTE | 2025-03-18 09:36 | WPDCNINT2 ---
Assessment and Plan Assessment and plan (1) Essential hypertension: Code(s): I10 - Essential (primary) hypertension Status: Acute (2) Chest pain: Code(s): R07.9 - Chest pain, unspecified Status: Acute Plan 1. Neurologically patient is awake and interactive. 2. Cardiovascular chest pain of unknown origin with minimal troponin elevation. Echocardiogram has been ordered and Cardiology is following. Discontinue heparin drip, continue aspirin. Cardiology to decide if further medications are needed after echocardiogram has been reviewed. He might need medications for blood pressure control. 3. Respiratory: No symptoms. No tobacco use 4. GI: Resume diet. LFTs were not elevated. 5. renal: BUN mildly elevated with normal creatinine. Electrolytes are normal. 6. Endocrine: No history of diabetes or thyroid disease. 7. DVT prophylaxis: Will advance activity. 8. Id: No evidence of acute infection 9. Hematologically: CBCs essentially normal today, his hemoglobin was elevated on admission is now 17.5. 10. Disposition: Stable to move to telemetry, discharge planning per Cardiology. Time Spent with Patient Time with patient: 45 - 74 minutes Photo Producer Consult Note Consult date: 03/18/25 Time Seen: 09:36 Reason for consult: Chest pain HPI: Serg Madison is a 59 year old male with history of hypertension who was working out upper body and developed 50/10 chest pain with left arm discomfort. He came to the emergency room where he was admitted for further workup. 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 He has minimal residual pain about 1/10 today but otherwise feels well. Denies any shortness of breath, cough, sputum production. [facility] Past Medical History Medical History Family history of abdominal aortic aneurysm (AAA) Vitamin D deficiency Vertigo Depression Family History Family History Father Hypertension Alcoholism Heart problem Mother Hypertension Depression Heart problem Social History Social History Smoking status: Never smoker Second hand tobacco smoke exposure: Yes Alcohol intake: current Drinks per week: 3 Substance use: never Substance use type: does not use Lack of Transportation: No Lack of Food: Never True Current Housing: I Have Housing Concerned About Future Housing: No Difficulty Paying Gas/Electric Bills: No Difficulty Paying for Meds: No Currently Unemployed: No Education: Master's Degree or Higher Difficulty w/ Childcare or Family Care: No Spiritual care concerns: No Meds Home Medications and Allergies Home Medications ?Medication ?Instructions ?Recorded ?Confirmed ?Type cholecalciferol (vitamin D3) 25 25 mcg PO DAILY 08/20/23 03/17/25 History mcg (1,000 unit) capsule mecobalamin (vitamin B12) 500 mcg 1,000 mcg PO DAILY 08/20/23 03/17/25 History chewable tablet testosterone cypionate 100 mg/mL 100 mg IM ONCE 08/20/23 03/17/25 History intramuscular oil Allergies Allergy/AdvReac Type Severity Reaction Status Date / Time No Known Allergies Allergy Verified 03/17/25 17:05 Vital Signs Vital Signs - 24 hr 03/17/25 12:17 03/17/25 12:25 03/17/25 14:30 Temperature 98.2 F Pulse Rate 78 80 65 Respiratory Rate 16 Blood Pressure 208/93 H Pulse Oximetry 98 Oxygen Delivery 03/17/25 15:36 03/17/25 16:55 03/17/25 18:00 Temperature 98.2 F Pulse Rate 69 57 L 62 Respiratory Rate 14 16 Blood Pressure 134/84 135/96 H Pulse Oximetry 96 96 Oxygen Delivery 03/17/25 19:51 03/17/25 20:00 03/17/25 20:35 Temperature 97.7 F Pulse Rate 70 64 70 Respiratory Rate 14 14 Blood Pressure 139/91 H Pulse Oximetry 94 94 Oxygen Delivery Room Air 03/17/25 20:40 03/17/25 20:56 03/17/25 20:59 Temperature Pulse Rate 58 L 57 L 54 L Respiratory Rate 22 H 20 Blood Pressure 95/52 L 96/53 L Pulse Oximetry 96 95 Oxygen Delivery 03/17/25 22:00 03/17/25 22:00 03/17/25 22:03 Temperature 98.5 F Pulse Rate 61 60 59 L Respiratory Rate 16 10 L Blood Pressure 118/89 Pulse Oximetry 96 Oxygen Delivery 03/17/25 22:16 03/17/25 22:31 03/17/25 23:40 Temperature Pulse Rate 59 L 56 L 59 L Respiratory Rate 20 14 14 Blood Pressure 121/82 124/83 119/81 Pulse Oximetry 96 95 96 Oxygen Delivery 03/17/25 23:47 03/18/25 00:00 03/18/25 00:00 Temperature Pulse Rate 58 L 54 L Respiratory Rate 12 Blood Pressure 119/80 Pulse Oximetry 96 Oxygen Delivery Room Air 03/18/25 00:10 03/18/25 00:25 03/18/25 00:55 Temperature Pulse Rate 55 L 54 L 53 L Respiratory Rate 23 H 12 13 Blood Pressure 130/82 125/75 137/80 Pulse Oximetry 92 95 93 Oxygen Delivery 03/18/25 01:13 03/18/25 01:25 03/18/25 02:00 Temperature Pulse Rate 53 L 52 L 52 L Respiratory Rate 13 13 Blood Pressure 140/71 115/75 Pulse Oximetry 94 93 Oxygen Delivery 03/18/25 02:25 03/18/25 02:58 03/18/25 04:00 Temperature Pulse Rate 53 L 69 52 L Respiratory Rate 11 L 12 Blood Pressure 137/96 H 141/76 H Pulse Oximetry 96 97 Oxygen Delivery 03/18/25 04:00 03/18/25 05:25 03/18/25 06:00 Temperature Pulse Rate 68 55 L Respiratory Rate 19 Blood Pressure 128/78 Pulse Oximetry 93 Oxygen Delivery Room Air 03/18/25 06:00 03/18/25 07:00 03/18/25 08:00 Temperature Pulse Rate 56 L 54 L 59 L Respiratory Rate 14 17 13 Blood Pressure 108/96 H 125/79 156/91 H Pulse Oximetry 96 93 95 Oxygen Delivery Exam Narrative: Awake and following commands Const: General: comfortable HENMT: Mouth: Yes moist mucous membranes Eyes: Pupils: Equal, round and reactive pupils present Neck: Neck: supple and no JVD Other: No cervical tenderness Resp: Effort & Inspection: normal respiratory effort Auscultation: clear to auscultation bilaterally Cardio: Rate: regular rate Other: No murmurs rubs GI: GI Palp: Yes Soft to palpation Auscultation: normal bowel sounds Skin: General skin exam: normal color Neuro: Speech: normal speech Motor exam (neuro): 5/5 motor strength present throughout Extrem: General: normal to inspection Psych: Mental Status: mental status grossly normal Affect: normal affect Results Labs 03/18/25 04:41 12/27/25 04:41 Labs: Short CBC 03/17/25 03/17/25 03/18/25 Range/Units 12:29 18:24 04:41 WBC 7.3 7.1 7.3 (4.5-10.0) K/mm3 Hgb 19.3 H 18.8 H 17.5 (14.0-18.0) g/dL Hct 54.9 H 53.7 H 51.2 (42.0-52.0) % Plt Count 376 H 371 320 (150-375) k/mm3 BMP 03/17/25 03/18/25 12: 04:41 Sodium 139 135 L Potassium 3.9 3.8 Chloride 104 108 H Carbon Dioxide 26 23 BUN 25 H 22 H Creatinine 1.25 1.01 Glucose 109 104 Calcium 9.6 8.4 Cardiac Enzymes 03/17/25 03/17/25 03/17/25 Range/Units 12:29 15:35 18:24 Troponin I 0.236 H* 0.531 H* D 0.928 H* D (0.000-0.034) ng/mL Liver Function 03/17/25 Range/Units 12: Total Bilirubin 2.0 H (0.2-1.3) mg/dL AST 45 (17-59) U/L ALT 50 (6-50) U/L Alkaline Phosphatase 64 (38-126) U/L Albumin 4.8 (3.5-5.1) g/dL
[2025-03-18] MEDS: ASPIRIN 81 MG ENTERIC TABLET PO (09:57)
[2025-03-18] MEDS: METOPROLOL TARTRATE 12.5 MG TABLET PO (09:58)
[2025-03-18] MEDS: PERFLUTREN LIPID MICROSPHERES 1.5 ML VIAL DILUTED TO 10 ML TOTAL VOLUME IV PUSH (11:00)
--- NOTE | 2025-03-18 11:25 | IVDEFINITY ---
Prior to administration of IV Definity the patient was educated on the risks and benefits of the imaging enhancing agent including potential adverse side effects. The patient verbalized understanding. Allergies were verified. No exclusion criteria were identified and at least one of the following inclusion criteria were met: 1) physician request, 2) patient technically difficult to image (per the [place] [employer]ocardi[employer] guidelines of two or more segments not discernable within the apical view), or 3) questionable left ventricular function. ?
--- NOTE | 2025-03-18 15:45 | P.PNCA_ITS ---
Progress Note: A&P Assessment and Plan (1) Chest pain: Code(s): R07.9 - Chest pain, unspecified Status: Acute Plan 59-year-old man with incident of atypical sounding chest pain but associated with modest troponin rise and modest ECG abnormalities. He had a normal coronary angiogram done last evening. I believe he can be discharged at this point on a low dose of metoprolol. He will be seen in the office for follow-up within 2-3 weeks. The patient does not require anti-platelet or statin therapy in my opinion in fact statins are contraindicated as he had an episode of statin induced rhabdomyolysis many years ago. Inform the nursing staff that he may be discharged today and I will have the office reach out to him for follow-up after the weekend Brain Atkinson MD [facility] Subjective Date/time seen: Date of service 03/18/25 15:45 Interval history: Follow-up visit in this 59-year-old man with: Suspected acute coronary syndrome with chest pain modest troponin elevation and subtle ECG abnormalities. Emergency coronary angiography last night was unremarkable. He is stable at this time and feels well. Echocardiogram done today demonstrates a tiny area of hypokinesis in the anteroapical wall of the left ventricle otherwise a unremarkable exam. Discussed this with the patient and his in detail. I am going to recommend a very modest dose of metoprolol because of this but he I do not believe he requires any other medications since his angiograms were normal. He would like to be discharged at this time Exam Const: General: comfortable and no acute distress Other: Very pleasant gentleman appearing his stated age comfortable and cooperative HENMT: Face/Nose/Sinus: Normal nares present Mouth: Yes moist mucous membranes Eyes: General: appearance normal, both eyes and all related structures Sclera: sclerae normal Pupils: Equal, round and reactive pupils present EOM: EOMs intact bilaterally Neck: Neck: no JVD Resp: Effort & Inspection: normal respiratory effort Auscultation: clear to auscultation bilaterally Cardio: Rate: regular rate Rhythm: regular rhythm Other: No murmur no gallop no rub GI: Auscultation: normal bowel sounds Other: Abdomen soft, nondistended, nontender. Normoactive bowel sounds in all quadrants. Skin: General skin exam: normal color and no rashes or lesions noted Wounds: no wounds Neuro: Cranial nerves: Yes Equal, round and reactive pupils present Other: Alert and oriented x3 Extrem: General: normal to inspection Psych: Mental Status: mental status grossly normal Affect: normal affect Other: Good insight and judgment, pleasant Objective Data Vital Signs Vital Signs: Vital Signs - 24 hr 03/17/25 16:55 03/17/25 18:00 03/17/25 19:51 Temperature 36.8 C 36.5 C Pulse Rate 57 L 62 70 Respiratory Rate 16 14 Blood Pressure 135/96 H 139/91 H Pulse Oximetry 96 94 Oxygen Delivery 03/17/25 20:00 03/17/25 20:35 03/17/25 20:40 Temperature Pulse Rate 64 70 58 L Respiratory Rate 14 Blood Pressure Pulse Oximetry 94 Oxygen Delivery Room Air 03/17/25 20:56 03/17/25 20:59 03/17/25 22:00 Temperature Pulse Rate 57 L 54 L 61 Respiratory Rate 22 H 20 Blood Pressure 95/52 L 96/53 L Pulse Oximetry 96 95 Oxygen Delivery 03/17/25 22:00 03/17/25 22:03 03/17/25 22:16 Temperature 36.9 C Pulse Rate 60 59 L 59 L Respiratory Rate 16 10 L 20 Blood Pressure 118/89 121/82 Pulse Oximetry 96 96 Oxygen Delivery 03/17/25 22:31 03/17/25 23:40 03/17/25 23:47 Temperature Pulse Rate 56 L 59 L 58 L Respiratory Rate 14 14 12 Blood Pressure 124/83 119/81 119/80 Pulse Oximetry 95 96 96 Oxygen Delivery 03/18/25 00:00 03/18/25 00:00 03/18/25 00:10 Temperature Pulse Rate 54 L 55 L Respiratory Rate 23 H Blood Pressure 130/82 Pulse Oximetry 92 Oxygen Delivery Room Air 03/18/25 00:25 03/18/25 00:55 03/18/25 01:13 Temperature Pulse Rate 54 L 53 L 53 L Respiratory Rate 12 13 13 Blood Pressure 125/75 137/80 140/71 Pulse Oximetry 95 93 94 Oxygen Delivery 03/18/25 01:25 03/18/25 02:00 03/18/25 02:25 Temperature Pulse Rate 52 L 52 L 53 L Respiratory Rate 13 11 L Blood Pressure 115/75 137/96 H Pulse Oximetry 93 96 Oxygen Delivery 03/18/25 02:58 03/18/25 04:00 03/18/25 04:00 Temperature Pulse Rate 69 52 L Respiratory Rate 12 Blood Pressure 141/76 H Pulse Oximetry 97 Oxygen Delivery Room Air 03/18/25 05:25 03/18/25 06:00 03/18/25 06:00 Temperature Pulse Rate 68 55 L 56 L Respiratory Rate 19 14 Blood Pressure 128/78 108/96 H Pulse Oximetry 93 96 Oxygen Delivery 03/18/25 07:00 03/18/25 08:00 03/18/25 08:00 Temperature Pulse Rate 54 L 59 L 59 L Respiratory Rate 17 13 Blood Pressure 125/79 156/91 H Pulse Oximetry 93 95 Oxygen Delivery 03/18/25 09:00 03/18/25 09:45 03/18/25 09:58 Temperature 36.6 C Pulse Rate 60 134 H 70 Respiratory Rate 17 Blood Pressure 156/91 H Pulse Oximetry 95 Oxygen Delivery 03/18/25 10:00 03/18/25 10:00 03/18/25 11:00 Temperature Pulse Rate 75 63 65 Respiratory Rate 15 18 Blood Pressure 146/94 H 174/88 H Pulse Oximetry 97 98 Oxygen Delivery 03/18/25 12:00 03/18/25 12:00 03/18/25 13:00 Temperature 36.6 C Pulse Rate 57 L 60 60 Respiratory Rate 16 Blood Pressure 132/91 H Pulse Oximetry 97 Oxygen Delivery 03/18/25 14:00 Temperature Pulse Rate 59 L Respiratory Rate Blood Pressure Pulse Oximetry Oxygen Delivery Intake/Output Intake/Output: Intake & Output 03/15/25 03/16/25 03/17/25 03/18/25 23:59 23:59 23:59 23:59 Intake Total 922.6 508.8 Output Total 500 Balance 922.6 8.8 Meds/Results Medications: Active Medications Generic Name Dose Route Start Last Admin Trade Name Freq PRN Reason Stop Dose Admin Acetaminophen 650 mg 03/17/25 14:34 03/17/25 18:18 Acetaminophen 325 Mg Tablet PO 650 mg Q4H PRN Administration Mild Pain (1-3) or Fever Hydrocodone Bitart/Acetaminophen 1 tab 03/17/25 14:34 Hydrocodone/Acetaminophen (*Crx) 5-325 Mg Tablet PO Q4H PRN Pain Rated 4-6 Aspirin 81 mg 03/18/25 09:00 12/27/25 09:57 Aspirin 81 Mg Enteric Tablet PO 81 mg QAM ADELFO Administration Calcium Carbonate 200 mg 03/17/25 14:50 Calcium Carbonate (Tums) 500 Mg (200 Mg Elemental) PO Q6H PRN Indigestion Metoprolol Succinate 25 mg 03/19/25 09:00 Metoprolol Succinate Ext Rel 25 Mg Tabcr PO QAM ADELFO Nitroglycerin 0.4 mg 03/17/25 14:33 03/17/25 21:10 Nitroglycerin Sl 0.4 Mg Tablet SUBLINGUAL 0.4 mg Q5MIN PRN Administration Chest Pain Ondansetron HCl 4 mg 03/17/25 14:34 Ondansetron Inj 4 Mg/2 Ml Vial IV PUSH Q4H PRN Nausea Radiology Results: ITS Impressions Chest X-Ray 03/17/25 12:58 IMPRESSION: 1. No acute cardiopulmonary findings. Labs Labs: Laboratory Results - last 24 hr 03/17/25 03/17/25 03/18/25 15:35 18:24 01:49 WBC 7.1 RBC 5.67 Hgb 18.8 H Hct 53.7 H MCV 94.7 MCH 33.2 MCHC 35.0 RDW 13.3 Plt Count 371 MPV 9.6 Immature Gran % (Auto) 0.4 Neut % (Auto) 76.0 H Lymph % (Auto) 15.4 L [place] % (Auto) 4.7 Eos % (Auto) 2.5 Baso % (Auto) 1.0 Lymph # (Auto) 1.09 [place] # (Auto) 0.3 Eos # (Auto) 0.2 Baso # (Auto) 0.1 Abs Immat Gran (auto) 0.03 Absolute Neuts (auto) 5.4 Absolute Nucleated RBC 0.000 Nucleated RBC % 0.0 PT 13.8 INR 1.1 APTT 41.1 H 83.7 H Sodium Potassium Chloride Carbon Dioxide Anion Gap BUN Creatinine Estim Creat Clear Calc Estimated GFR Glucose Calcium Troponin I 0.531 H* D 0.928 H* D 03/18/25 04:41 WBC 7.3 RBC 5.42 Hgb 17.5 Hct 51.2 MCV 94.5 MCH 32.3 MCHC 34.2 RDW 13.3 Plt Count 320 MPV 9.5 Immature Gran % (Auto) 0.5 Neut % (Auto) 77.1 H Lymph % (Auto) 14.1 L [place] % (Auto) 6.0 Eos % (Auto) 1.6 Baso % (Auto) 0.7 Lymph # (Auto) 1.03 [place] # (Auto) 0.4 Eos # (Auto) 0.1 Baso # (Auto) 0.1 Abs Immat Gran (auto) 0.04 H Absolute Neuts (auto) 5.6 Absolute Nucleated RBC 0.000 Nucleated RBC % 0.0 PT INR APTT Sodium 135 L Potassium 3.8 Chloride 108 H Carbon Dioxide 23 Anion Gap 4 BUN 22 H Creatinine 1.01 Estim Creat Clear Calc 68 Estimated GFR > 60 Glucose 104 Calcium 8.4 Troponin I
--- NOTE | 2025-03-18 16:29 | P.DS_ITS ---
DS: Admitting Diagnosis Discharge Date 03/18/2025 Admitting Diagnosis Chest pain DS: Summary Hospital Course Hospital Course: This is a 59-year-old male presents to the ED on 03/17/2025 with chest pain. Patient reported he did work out around 7:30 a.m.. Chest pain started shortly after his workout. Described as central pressure radiation to the left upper extremity and left shoulder on stand with no aggravating or relieving factor. Initially he over the pain was related to his workout. He took a nap prior to going to work but the pain persisted despite arrest. He had mild indentation and mild 50 associated. No accompanying nausea vomiting dizziness shortness of breath diaphoresis palpitation or weakness. He reported he had brief episode of high blood pressure earlier in the year there was accompanied by dizziness blurriness of vision and headache. Evaluated at [facility] and was diagnosed with vertigo. He later followed up with PCP and the his recheck blood pressure has been normal. He has not been on any antihypertensive her anticoagulation or antiplatelet since then. He has previously been prescribed a statin however he did not tolerate this due to significant muscle weakness and rhabdomyolysis. He does report significant family history of cardiac disease. The ED his vitals initially showed hypertension with blood pressure of 208/93. Laboratory workup showed no leukocytosis hemoglobin of 19.3 normal coags. No significant electrolyte derangements. Creatinine of 1.25 and GFR 59. Total bilirubin 2.0 with normal AST ALT and alkaline phosphatase. Initial troponin 0.236 cholesterol level total of 205. Chest x-ray showed no acute cardiopulmonary abnormality. Initial EKG with sinus rhythm left atrial enlargement possible delay possible LVH and nonspecific T-wave abnormality. He was started on aspirin beta-jas atorvastatin and heparin drip for non ST elevation ID. Cardiology was consulted. He received 3 sublingual nitro with m inimal relief. On serially EKG he had mild EKG changes noted with worsening ST-elevation in V3 and V4. Serial troponin 0.236-0.53 1-0.9 VIII. With ongoing chest pain patient went for origin cardiac catheterization on 03/17/2025 which revealed normal coronaries. Echo was performed which showed normal EF of 60 - 65% very small discrete area of distal anterior hypokinesis with no valvular abnormalities. Cardiology has cleared him for discharge on beta-jas and to follow up with him as an outpatient basis. Time Spent with Patient Time attestation: Total time spent providing and/or coordinating discharge services: 45 minutes Exam Narrative: GENERAL: The patient is well developed, not in acute distress HEENT: Nonicteric sclerae, PERRLA, EOMI. Oropharynx clear. Moist mucous membranes. Conjunctivae appear well perfused. CHEST: Chest wall is nontender. HEART: Regular rate and rhythm without murmur, rubs, or gallops LUNGS: Clear to auscultation bilaterally. no respiratory distress ABDOMEN: Soft, positive bowel sounds, non-tender, no organomegaly. SKIN: No rash, no excessive bruising, petechiae, or purpura. NEUROLOGIC: Cranial nerves II-XII intact, alert and oriented x 3, no gross motor deficits EXTREMITIES: no edema, cyanosis or clubbing DS: Data Data Completed and Pending Completed studies during hospitalization: Exam Type: CA echo dop color flow w con Complete two-dimensional, color flow and Doppler transthoracic echocardiogram is performed with contrast to opacify the left ventricle and to improve the deliniation of the left ventricle endocardial borders. Staff Referring Physician: Zohaib Maldonado MD Lace Roller Operator: Leatha Fulton Attending Provider: Jesus Spicer Contrast/Agitated Saline Contrast/Ag. Saline: Definity Amount: 2.00 ml Administered By: Leatha Fulton Existing IV Access: Yes IV Access Condition: patent with no signs of infiltration Summary 1. Normal left ventricular size with overall normal systolic and diastolic function. 2. Very small discrete area of distal anterior hypokinesia. 3. No valvular abnormalities. 4. Sinus rhythm. Left Ventricle Left ventricular systolic function is normal, estimated at 60-65. The left ventricular diastolic function is normal. Right Ventricle Right ventricular chamber dimension is normal. Left Atria Left atrial chamber dimension is normal. Right Atria Right atrial chamber dimension is normal. Aortic Valve The aortic valve is normal. Pulmonic Valve The pulmonic valve is normal. Mitral Valve The mitral valve has normal leaflets. Tricuspid Valve The tricuspid valve leaflets are normal. Pericardium/Pleural The pericardium appears normal. Aorta The aortic root size at the sinus of Valsalva is normal. Labs on day of discharge: Labs from last 24 hours 1203/18/25 03/17/25 04:41 01:49 18:24 WBC 7.3 7.1 RBC 5.42 5.67 Hgb 17.5 18.8 H Hct 51.2 53.7 H MCV 94.5 94.7 MCH 32.3 33.2 MCHC 34.2 35.0 RDW 13.3 13.3 Plt Count 320 371 MPV 9.5 9.6 Immature Gran % (Auto) 0.5 0.4 Neut % (Auto) 77.1 H 76.0 H Lymph % (Auto) 14.1 L 15.4 L [place] % (Auto) 6.0 4.7 Eos % (Auto) 1.6 2.5 Baso % (Auto) 0.7 1.0 Lymph # (Auto) 1.03 1.09 [place] # (Auto) 0.4 0.3 Eos # (Auto) 0.1 0.2 Baso # (Auto) 0.1 0.1 Abs Immat Gran (auto) 0.04 H 0.03 Absolute Neuts (auto) 5.6 5.4 Absolute Nucleated RBC 0.000 0.000 Nucleated RBC % 0.0 0.0 PT 13.8 INR 1.1 APTT 83.7 H 41.1 H Sodium 135 L Potassium 3.8 Chloride 108 H Carbon Dioxide 23 Anion Gap 4 BUN 22 H Creatinine 1.01 Estim Creat Clear Calc 68 Estimated GFR > 60 Glucose 104 Calcium 8.4 Troponin I 0.928 H* D Procedures/Treatments: Cardiac Cath Procedure Note Date of procedure:: 03/17/25 Performing physician:: Xu Wheeler MD Indication:: NSTEMI Brief clinical history:: As noted in cardiology consult note Procedure Procedure performed:: 1. Coronary Angiography 2. Left Heart Catheterization Sedation/Medication given:: Versed 1 mg Fentanyl 25 mcg Access site:: Right Radila Estimated blood loss:: 2 cc Procedure note:: The patient was brought to the fish hatchery laborer and informed consent was signed after discussion of the risks and benefits. The right radial artery was accessed using seldinger technique and a 5-6 Fr sheath was inserted. A 5Fr Tig catheter was used to the engage the right and left coronary ostia. Multiple aniographic images were taken in different cineangiographic projections. The aortic valve was crossed and LVEDP was measure. The catheter was pulled back for a LV-Ao gradient. The radial sheath was removed at the end of the procedure and hemostasis was achieved with TR band Moderate sedation was given under my direct supervision and the patient was monitored by an independent trained personnel Sedation Start Time: 2307 H Sedation Edn time: 2321 H Findings:: 1. Coronary Angiography: LM: Large caliber vessel which divides into LAD, Ramus and LCX branches. No angiographic evidence of atherosclerotic ds. LAD: Large caliber, transapical vessel which gives rise to a mod-large caliber diagonal branch. No angiographic evidence of atherosclerotic ds. LCX; LArge caliber, non dominant vessel, gives rise to mod caliber OM1. No angiographic evidence of atherosclerotic ds. Ramus: LArge caliber vessel. No angiographic evidence of atherosclerotic ds. RCA: LArge caliber vessel whihc divides into PDA and PLV brnaches. No angiographic evidence of atherosclerotic ds. 2. Left Heart Catheterization LVEDP 6 mmhg No significant LV-Ao gradient on pullback Conclusion:: 1. Normal Coronaries 2. Normal LVEDP Imaging Radiologist's impression: ITS Impressions Chest X-Ray 03/17/25 12:58 IMPRESSION: 1. No acute cardiopulmonary findings. Discharge Plan Discharge Attending physician on discharge: Bishnu Hackett Consulting providers: Brain Atkinson; Ciaran Cool Discharging Clinician: Bishnu Hackett Anticipated Discharge Date/Time: 03/18/25 16:39 Patient Disposition: Home Activity: as tolerated Diet: heart healthy Patient Instructions: Antibiotic Form, Metoprolol (By mouth), Angina (GEN), Heart Attack (DC), Heart Healthy Diet (GEN), Heart Catheterization (DC), After Radial Heart Catheterization (GEN) Patient Language: Yoruba Stand Alone Forms: General Discharge Information Follow-up/Referrals: Brain Atkinson MD [Physician, Cardiology] - 2 Weeks Epifanio Gabriel DO [Primary Care Provider, Internal Medicine] - 1 Week Discharge Medications: New metoprolol succinate [Toprol XL] 25 mg Tablet Extended Release 24 Hr 25 mg PO QAM Qty: 30 0RF Continued testosterone cypionate 100 mg/mL oil 100 mg IM ONCE Rx Instructions: as a single dose mecobalamin (vitamin B12) 500 mcg tablet,chewable 1,000 mcg PO DAILY cholecalciferol (vitamin D3) 25 mcg (1,000 unit) capsule 25 mcg PO DAILY Date of admission: 03/17/25 17:07 Primary Care Provider: Epifanio Gabriel Admitting Provider: Jesus Spicer Attending physician on admission: Jesus Spicer Condition: Stable
== END 2025-03-18 17:17 | disposition home or self-care (01) | DRG 287 ==
LOC: ANHED 14:38 → ANHIMU 15:42 → ANHICU 22:16
PROVIDERS: Internal Medicine Interventional Cardiology; Student in an Organized Health Care Education/Training Program; Admitting Provider Internal Medicine; Emergency Provider Emergency Medicine; PCP Internal Medicine; Visit Provider Internal Medicine
PROC: 4A023N7 Measurement of Cardiac Sampling and Pressure, Left Heart, Percutaneous Approach (ICD-10-PCS; CPT 93452; principal; 2025-03-17 22:30)
DX: I24.89 Other forms of acute ischemic heart disease (principal); I10 Essential (primary) hypertension; F32.A Depression, unspecified
CPT/HCPCS: 36415; 71046; 80048; 80053; 80061; 83690; 84484; 85025; 85610; 85730; 93005; 93458; 96374; 99291; A9270; C1769; C1887; C1894; C8929; G0378; J1644; J2003; J2250; J2270; J2305; J3010; J7030; J7040; Q9957